=== PATIENT | female | born 1955 | race Caucasian/White ===

== ENCOUNTER 2024-09-08 08:37 | Day surgery (SDC) | payer MEDICARE, OTHER ==
[2024-09-08] MEDS: Lactated Ringers 1,000 ML IV SCH (08:53)
[2024-09-08] MEDS ORDERED: ePHEDrine 50 MG/ML SDV ONE (08:55)
[2024-09-08] MEDS ORDERED: Propofol 200 MG/20 ML SDV ONE (08:55)
[2024-09-08] MEDS ORDERED: Ketamine 200 MG/20 ML MDV ONE (08:55)
[2024-09-08] MEDS ORDERED: fentaNYL 50 MCG/ML SDV ONE (08:55)
== END 2024-09-08 10:42 | disposition home or self-care (01) ==
LOC: CC.SDS 08:37
PROVIDERS: ATTEND Family Medicine
DX: Z12.11 Encounter for screening for malignant neoplasm of colon (principal); K63.5 Polyp of colon; K62.1 Rectal polyp; Z86.0100 Personal history of colon polyps, unspecified; E78.5 Hyperlipidemia, unspecified
CPT/HCPCS: 00811; 88305; J2704; J3010; J3490; J7120